=== PATIENT | female | born 1990 | race Caucasian/White ===

== ENCOUNTER 2019-08-24 17:03 | Emergency (ER) | payer MEDICAID ==
[~2019-08-24] VITALS: Ht 170.2 cm; Wt 94.0 kg
[2019-08-24 17:13] VITALS: BP 143/90
[2019-08-24 19:02] LABS: BASOPHILS # (AUTO) 0.1 X10'3 (0-0.2); BASOPHILS % (AUTO) 0.9 % (0-1); EOSINOPHILS # (AUTO) 0.2 X10'3 (0-0.9); EOSINOPHILS % (AUTO) 2.2 % (0-6); HEMATOCRIT 42.9 % (35.0-45.0); HEMOGLOBIN 14.6 g/dl (12.0-16.0); LYMPHOCYTES # (AUTO) 2.8 X10'3 (1.1-4.8); LYMPHOCYTES % (AUTO) 29.5 % (21-51); MEAN CORPUSCULAR HEMOGLOBIN 30.9 PG (27.0-31.0); MEAN CORPUSCULAR HGB CONC 34.1 g/dL (33.0-36.5); MEAN CORPUSCULAR VOLUME 90.7 FL (78-98); MEAN PLATELET VOLUME 8.3 FL (7.4-10.4); MONOCYTES # (AUTO) 0.7 X10'3 (0-0.9); MONOCYTES % (AUTO) 7.7 % (2-12); NEUTROPHILS # (AUTO) 5.6 X10'3 (1.8-7.7); NEUTROPHILS % (AUTO) 59.7 % (42-75); PLATELET COUNT 299 X10'3 (140-440); RED BLOOD COUNT 4.72 X10'6 (4.20-5.60); RED CELL DISTRIBUTION WIDTH 12.7 % (11.5-14.5); WHITE BLOOD COUNT 9.3 X10'3 (4.5-11.0)
[2019-08-24 19:23] LABS: ALANINE AMINOTRANSFERASE 25 U/L (12-78); ALBUMIN 3.6 G/DL (3.4-5.0); ALKALINE PHOSPHATASE 93 IU/L (46-116); ANION GAP 6 (8-16); ASPARTATE AMINO TRANSFERASE 21 U/L (10-37); BILIRUBIN,TOTAL 0.2 MG/DL (0.1-1.0); BLOOD UREA NITROGEN 12 MG/DL (7-18); BUN/CREATININE RATIO 23.5 (6.6-38.0); CALCIUM 9.1 MG/DL (8.5-10.1); CHLORIDE 104 MMOL/L (99-107); CREATININE 0.51 MG/DL (0.40-0.90); GLUCOSE 80 MG/DL (70-104); POTASSIUM 3.6 MMOL/L (3.5-5.1); SODIUM 140 MMOL/L (135-145); TOTAL CARBON DIOXIDE 29.9 MMOL/L (24-32); TOTAL PROTEIN 7.2 G/DL (6.4-8.2); eGFR > 90 ML/MIN
[2019-08-24 19:27] LABS: MAGNESIUM 1.8 MG/DL (1.5-2.4)
== END 2019-08-24 20:08 | disposition home or self-care (01) ==
LOC: ER 17:04
DX: R60.0 Localized edema (principal); E88.09 Other disorders of plasma-protein metabolism, not elsewhere classified; E10.9 Type 1 diabetes mellitus without complications; Z56.0 Unemployment, unspecified; Z88.1 Allergy status to other antibiotic agents; Z88.5 Allergy status to narcotic agent; Z88.8 Allergy status to other drugs, medicaments and biological substances
CPT/HCPCS: 36415; 80053; 82948; 83735; 83880; 85025; 99284

== ENCOUNTER 2019-12-27 00:33 | Emergency (ER) | payer MEDICAID ==
[~2019-12-27] VITALS: Ht 170.2 cm; Wt 100.0 kg
[2019-12-27 00:51] LABS: CLARITY,URINE SLIGHTLY CLOUDY (Clear); COLOR,URINE YELLOW (Yellow); GLUCOSE, URINE 500 mg/dl (Neg); KETONES,URINE NEGATIVE (Neg); LEUKOCYTE ESTERASE ,URINE NEGATIVE (Neg); NITRITES, URINE NEGATIVE (Neg); OCCULT BLOOD,URINE NEGATIVE (Neg); PROTEIN,URINE NEGATIVE (Neg); UA COLLECTION TYPE CLN CATCH MIDSTREAM; UROBILINOGEN,URINE 0.2 E.U/dL (0.2-1.0)
[2019-12-27 00:55] LABS: BACTERIA,URINE 1+ /HPF (Neg); RBC,URINE NONE SEEN /HPF (0-2); SQUAMOUS EPITHELIAL CELL,UR MODERATE /LPF (FEW); WBC,URINE 0-4 /HPF (0-4)
[2019-12-27 00:56] LABS: YEAST MODERATE /HPF (NEGATIVE)
[2019-12-27] MEDS ORDERED: ketorolac trometh. 30mg/ml inj. IV ONE (01:00)
[2019-12-27] MEDS ORDERED: METH-360 PO (01:33)
[2019-12-27 01:35] LABS: MEAN CORPUSCULAR HEMOGLOBIN 31.3 PG (27.0-31.0); PLATELET COUNT 366 X10'3 (140-440); RED CELL DISTRIBUTION WIDTH 13.3 % (11.5-14.5); WHITE BLOOD COUNT 10.6 X10'3 (4.5-11.0)
[2019-12-27 01:36] LABS: ALANINE AMINOTRANSFERASE 16 U/L (12-78); ALBUMIN 3.3 G/DL (3.4-5.0); ALBUMIN/GLOBULIN RATIO 0.8 (1.1-1.5); ALKALINE PHOSPHATASE 95 IU/L (46-116); ANION GAP 8 (8-16); ASPARTATE AMINO TRANSFERASE 12 U/L (10-37); BASOPHILS # (AUTO) 0.2 X10'3 (0-0.2); BASOPHILS % (AUTO) 1.6 % (0-1); BILIRUBIN,TOTAL 0.2 MG/DL (0.1-1.0); BLOOD UREA NITROGEN 10 MG/DL (7-18); BUN/CREATININE RATIO 19.6 (6.6-38.0); CALCIUM 9.1 MG/DL (8.5-10.1); CHLORIDE 103 MMOL/L (99-107); CREATININE 0.51 MG/DL (0.40-0.90); EOSINOPHILS # (AUTO) 0.3 X10'3 (0-0.9); EOSINOPHILS % (AUTO) 2.5 % (0-6); GLUCOSE 200 MG/DL (70-104); HEMATOCRIT 40.4 % (35.0-45.0); LIPASE 52 U/L (73-393); LYMPHOCYTES # (AUTO) 2.5 X10'3 (1.1-4.8); LYMPHOCYTES % (AUTO) 23.4 % (21-51); MEAN CORPUSCULAR HGB CONC 34.6 g/dL (33.0-36.5); MEAN CORPUSCULAR VOLUME 90.3 FL (78-98); MEAN PLATELET VOLUME 8.1 FL (7.4-10.4); MONOCYTES # (AUTO) 0.7 X10'3 (0-0.9); MONOCYTES % (AUTO) 6.5 % (2-12); POTASSIUM 3.9 MMOL/L (3.5-5.1); RED BLOOD COUNT 4.48 X10'6 (4.20-5.60); SODIUM 139 MMOL/L (135-145); TOTAL CARBON DIOXIDE 28.2 MMOL/L (24-32); TOTAL PROTEIN 7.3 G/DL (6.4-8.2); eGFR > 90 ML/MIN
[2019-12-27 02:02] VITALS: BP 136/95
== END 2019-12-27 02:03 | disposition home or self-care (01) ==
LOC: ER 00:34
DX: S29.012A Strain of muscle and tendon of back wall of thorax, initial encounter (principal); M54.89 Other dorsalgia; R10.32 Left lower quadrant pain; E11.9 Type 2 diabetes mellitus without complications; Z56.0 Unemployment, unspecified; Z88.1 Allergy status to other antibiotic agents; Z88.5 Allergy status to narcotic agent; Z88.8 Allergy status to other drugs, medicaments and biological substances; Z79.899 Other long term (current) drug therapy; X58.XXXA Exposure to other specified factors, initial encounter; Y93.89 Activity, other specified; Y92.89 Other specified places as the place of occurrence of the external cause; Y99.8 Other external cause status
CPT/HCPCS: 36415; 74176; 80053; 81001; 82948; 83690; 85025; 96374; 99284; J1885

== ENCOUNTER 2020-11-11 07:39 | Emergency (ER) | payer MEDICAID ==
[~2020-11-11] VITALS: Ht 170.2 cm; Wt 101.9 kg
[~2020-11-11 07:39] MED LIST: METH-360 PO
[2020-11-11 08:10] VITALS: BP 149/89
[2020-11-11 09:50] LABS: BASOPHILS # (AUTO) 0.1 X10'3 (0-0.2); BASOPHILS % (AUTO) 0.9 % (0-1); EOSINOPHILS # (AUTO) 0.1 X10'3 (0-0.9); EOSINOPHILS % (AUTO) 1.1 % (0-6); HEMATOCRIT 41.6 % (35.0-45.0); HEMOGLOBIN 14.1 g/dl (12.0-16.0); LYMPHOCYTES # (AUTO) 2.4 X10'3 (1.1-4.8); LYMPHOCYTES % (AUTO) 25.1 % (21-51); MEAN CORPUSCULAR HEMOGLOBIN 30.3 PG (27.0-31.0); MEAN CORPUSCULAR HGB CONC 33.8 g/dL (33.0-36.5); MEAN CORPUSCULAR VOLUME 89.6 FL (78-98); MEAN PLATELET VOLUME 8.4 FL (7.4-10.4); MONOCYTES # (AUTO) 0.5 X10'3 (0-0.9); MONOCYTES % (AUTO) 5.6 % (2-12); NEUTROPHILS # (AUTO) 6.4 X10'3 (1.8-7.7); NEUTROPHILS % (AUTO) 67.3 % (42-75); PLATELET COUNT 356 X10'3 (140-440); RED BLOOD COUNT 4.64 X10'6 (4.20-5.60); RED CELL DISTRIBUTION WIDTH 12.7 % (11.5-14.5); WHITE BLOOD COUNT 9.5 X10'3 (4.5-11.0)
[2020-11-11 09:58] LABS: ALANINE AMINOTRANSFERASE 18 U/L (12-78); ALBUMIN 3.4 G/DL (3.4-5.0); ALBUMIN/GLOBULIN RATIO 0.8 (1.1-1.5); ALKALINE PHOSPHATASE 90 IU/L (46-116); ANION GAP 10 (8-16); ASPARTATE AMINO TRANSFERASE 12 U/L (10-37); BILIRUBIN,TOTAL 0.4 MG/DL (0.1-1.0); BLOOD UREA NITROGEN 9 MG/DL (7-18); BUN/CREATININE RATIO 19.6 (6.6-38.0); CALCIUM 8.8 MG/DL (8.5-10.1); CHLORIDE 104 MMOL/L (99-107); CREATININE 0.46 MG/DL (0.40-0.90); GLUCOSE 103 MG/DL (70-104); LIPASE < 50 U/L (73-393); SODIUM 141 MMOL/L (135-145); TOTAL CARBON DIOXIDE 27.4 MMOL/L (24-32); TOTAL PROTEIN 7.9 G/DL (6.4-8.2); eGFR > 90 ML/MIN
[2020-11-11 10:54] LABS: CLARITY,URINE CLOUDY (Clear); COLOR,URINE YELLOW (Yellow); GLUCOSE, URINE NEGATIVE (Neg); KETONES,URINE NEGATIVE (Neg); LEUKOCYTE ESTERASE ,URINE NEGATIVE (Neg); NITRITES, URINE NEGATIVE (Neg); OCCULT BLOOD,URINE NEGATIVE (Neg); PROTEIN,URINE NEGATIVE (Neg)
[2020-11-11 10:58] LABS: UA COLLECTION TYPE CLN CATCH MIDSTREAM
[2020-11-11 10:59] LABS: MUCUS STRANDS MANY /LPF (Neg); SQUAMOUS EPITHELIAL CELL,UR MANY /LPF (FEW)
[2020-11-11 11:00] LABS: BACTERIA,URINE 1+ /HPF (Neg); URINE HCG NEGATIVE (NEG); YEAST MANY /HPF (NEGATIVE)
[2020-11-11 11:01] LABS: TRANSITIONAL EPI CELLS,URINE FEW /HPF
[2020-11-11 11:02] LABS: RBC,URINE 0-2 /HPF (0-2); WBC,URINE 0-4 /HPF (0-4)
== END 2020-11-11 11:12 | disposition home or self-care (01) ==
LOC: ER 07:39
DX: R10.84 Generalized abdominal pain (principal); R07.89 Other chest pain; R06.02 Shortness of breath; E11.9 Type 2 diabetes mellitus without complications; Z56.0 Unemployment, unspecified; Z88.1 Allergy status to other antibiotic agents; Z88.5 Allergy status to narcotic agent; Z88.8 Allergy status to other drugs, medicaments and biological substances; Z79.899 Other long term (current) drug therapy
CPT/HCPCS: 36415; 80053; 81001; 81025; 83690; 85025; 93005; 99284

== ENCOUNTER 2022-03-22 08:48 | Emergency (ER) | payer MEDICAID ==
[~2022-03-22] VITALS: Ht 170.2 cm; Wt 109.0 kg
[2022-03-22 08:52] VITALS: BP 156/88
[2022-03-22] MEDS ORDERED: dexamethasone sod phosphate 10mg/ml inj PO STA (09:04)
[2022-03-22] MEDS ORDERED: ipratropium/albuterol 3ml nebule NEB ONE (09:05)
[2022-03-22] MEDS ORDERED: levoFLOXACIN 250mg tablet PO ONE (10:15)
[2022-03-22] MEDS ORDERED: BUDE180A INH (10:19)
[2022-03-22] MEDS ORDERED: ALBU6.7H14 INH (10:19)
[2022-03-22] MEDS ORDERED: LEVO-65 PO (10:19)
[2022-03-22] MEDS ORDERED: DEXA6TAB PO (10:19)
== END 2022-03-22 10:37 | disposition home or self-care (01) ==
LOC: ER 08:48
DX: J18.9 Pneumonia, unspecified organism (principal); J45.909 Unspecified asthma, uncomplicated; Z20.822 Contact with and (suspected) exposure to COVID-19; E11.9 Type 2 diabetes mellitus without complications; Z56.0 Unemployment, unspecified; Z88.1 Allergy status to other antibiotic agents; Z86.718 Personal history of other venous thrombosis and embolism; Z88.5 Allergy status to narcotic agent; Z79.899 Other long term (current) drug therapy
CPT/HCPCS: 71046; 93971; 94640; 99284; J1100; 94760

== ENCOUNTER 2022-04-07 10:33 | Outpatient (CLI) | payer MEDICAID ==
[~2022-04-07 10:33] MED LIST changes: +ALBU6.7H14 INH; +BUDE180A INH; +DEXA6TAB PO
== END 2022-04-07 23:59 | disposition home or self-care (01) ==
LOC: RAD 10:33
PROVIDERS: ATTEND Family Medicine
DX: I25.10 Atherosclerotic heart disease of native coronary artery without angina pectoris (principal); R20.0 Anesthesia of skin; I10 Essential (primary) hypertension; R94.31 Abnormal electrocardiogram [ECG] [EKG]
CPT/HCPCS: 75571

== ENCOUNTER 2023-08-23 05:04 | Inpatient (IN) | payer MEDICAID, SELFPAY ==
[2023-08-23] VITALS (9 sets, daily range): BP systolic 136–156; BP diastolic 77–87; PULSE 94–100; RESP 14–33; TEMP 97.9; O2SAT 94–98
[~2023-08-23] VITALS: Ht 170.2 cm; Wt 113.6 kg
[2023-08-23 05:45] LABS: BASOPHILS # (AUTO) 0.1 X10'3 (0-0.2); BASOPHILS % (AUTO) 0.4 % (0-1); EOSINOPHILS # (AUTO) 0.1 X10'3 (0-0.9); EOSINOPHILS % (AUTO) 0.6 % (0-6); HEMATOCRIT 42.9 % (35.0-45.0); HEMOGLOBIN 14.2 g/dl (12.0-16.0); LYMPHOCYTES # (AUTO) 2.5 X10'3 (1.1-4.8); LYMPHOCYTES % (AUTO) 15.9 % (21-51); MEAN CORPUSCULAR HEMOGLOBIN 29.3 PG (27.0-31.0); MEAN CORPUSCULAR VOLUME 88.7 FL (78-98); MEAN PLATELET VOLUME 7.9 FL (7.4-10.4); MONOCYTES # (AUTO) 0.5 X10'3 (0-0.9); MONOCYTES % (AUTO) 3.4 % (2-12); NEUTROPHILS # (AUTO) 12.3 X10'3 (1.8-7.7); NEUTROPHILS % (AUTO) 79.7 % (42-75); PLATELET COUNT 328 X10'3 (140-440); RED BLOOD COUNT 4.84 X10'6 (4.20-5.60); RED CELL DISTRIBUTION WIDTH 13.7 % (11.5-14.5); WHITE BLOOD COUNT 15.5 X10'3 (4.5-11.0)
[2023-08-23 06:01] LABS: ALANINE AMINOTRANSFERASE 24 U/L (12-78); ALBUMIN 3.3 G/DL (3.4-5.0); ALBUMIN/GLOBULIN RATIO 0.7 (1.1-1.5); ALKALINE PHOSPHATASE 94 IU/L (46-116); ANION GAP 8 (8-16); ASPARTATE AMINO TRANSFERASE 20 U/L (10-37); BILIRUBIN,TOTAL 0.3 MG/DL (0.1-1.0); BLOOD UREA NITROGEN 7 MG/DL (7-18); BUN/CREATININE RATIO 12.7 (10.0-20.0); CALCIUM 8.9 MG/DL (8.5-10.1); CHLORIDE 102 MMOL/L (99-107); CREATININE 0.55 MG/DL (0.40-0.90); GLUCOSE 103 MG/DL (70-104); LIPASE 26 U/L (16-77); POTASSIUM 4.4 MMOL/L (3.5-5.1); SODIUM 136 MMOL/L (135-145); TOTAL CARBON DIOXIDE 26.5 MMOL/L (24-32); eCRCL 140 ML/MIN; eGFR > 90 ML/MIN
[2023-08-23] MEDS ORDERED: morphine 2 MG/ML inj. syringe IV PRN (06:30)
[2023-08-23] MEDS: ringers solution, lacted 1,000 ML IV ONE (06:30)
[2023-08-23] MEDS: acetaminophen 1,000mg/100ml IV 100 ML IV SCH (06:49)
[2023-08-23] MEDS: piperacillin/tazo 3.375gm/50ml 50 ML IV ONE (07:38)
[2023-08-23 08:02] LABS: BILIRUBIN,URINE NEGATIVE (Neg); CLARITY,URINE CLOUDY (Clear); COLOR,URINE YELLOW (Yellow); GLUCOSE, URINE NEGATIVE (Neg); KETONES,URINE NEGATIVE (Neg); LEUKOCYTE ESTERASE ,URINE NEGATIVE (Neg); NITRITES, URINE POSITIVE (Neg); OCCULT BLOOD,URINE TRACE-INTACT (Neg); PH,URINE 6.5 (4.8-8.0); PROTEIN,URINE NEGATIVE (Neg); UROBILINOGEN,URINE 0.2 E.U/dL (0.2-1.0)
[2023-08-23] MEDS ORDERED: iohexol 300mg/ml 100ml inj. ONE (08:05)
[2023-08-23 08:08] LABS: BACTERIA,URINE 4+ /HPF (Neg); MUCUS STRANDS FEW /LPF (Neg); SQUAMOUS EPITHELIAL CELL,UR MANY /LPF (FEW)
[2023-08-23 08:11] LABS: URINE HCG NEGATIVE (NEG)
[2023-08-23 08:12] LABS: UA COLLECTION TYPE VOIDED
[2023-08-23] MEDS ORDERED: NORepinephrine 8mg/ 250ml NS 250 ML IV SCH (08:45)
[2023-08-23] MEDS ORDERED: potassium Cl 20 mEq SR tablet PO PRN ×2 (09:40)
[2023-08-23] MEDS ORDERED: magnesium Cl slow-release 64mg tablet PO PRN (09:40)
[2023-08-23] MEDS ORDERED: magnesium 4gm in 100ml NS 100 ML IV PRN (09:40)
[2023-08-23] MEDS ORDERED: potassium Cl 40MEQ/1/2NS 520ml 520 ML IV PRN (09:40)
[2023-08-23] MEDS ORDERED: ondansetron/PF 4mg/2ml inj IV PRN (09:40)
[2023-08-23] MEDS ORDERED: acetaminophen 325mg tablet PO PRN (09:40)
[2023-08-23] MEDS ORDERED: magnesium 2GM in 50ml NS 50 ML IV PRN (09:40)
[2023-08-23] MEDS ORDERED: DEXTROSE 15 GM of carb/4 tabs (each vial/BOTTLE has 4 tablets) PO PRN ×2 (09:50)
[2023-08-23] MEDS ORDERED: glucagon, human recombinant 1mg kit SUBCUT PRN (09:50)
[2023-08-23] MEDS ORDERED: dextrose 50%-water 50ml dispensing syringe IV PRN ×2 (09:50)
[2023-08-23] MEDS: INSULIN LISPRO 100 UNIT/ML INSULN.PEN MULTI-DOSE SQ SCH ×4 (11:58→17:10)
[2023-08-23] MEDS: normal saline 1000ml 1,000 ML IV SCH (12:00)
[2023-08-23] MEDS: traMADol 50MG tablet PO ONE (12:19)
[2023-08-23] MEDS ORDERED: ASPI-920 PO (13:26)
[2023-08-23] MEDS ORDERED: LURA80TA2 PO (13:26)
[2023-08-23] MEDS ORDERED: BLOO-1948 SUBCUT (13:26)
[2023-08-23] MEDS ORDERED: INSU100C10 SUBCUT (13:26)
[2023-08-23] MEDS ORDERED: ROSU20TA2 PO (13:26)
[2023-08-23] MEDS ORDERED: DULO-31 PO (13:28)
[2023-08-23] MEDS ORDERED: SEMA0.258 SUBCUT (13:28)
[2023-08-23] MEDS ORDERED: acetaminophen 325mg tablet PO SCH (14:00)
[2023-08-23 14:32] LABS: HEMOGLOBIN A1C 7.8 % (4.5-6.2)
[2023-08-23] MEDS: piperacillin/tazo 3.375gm/50ml 50 ML IV SCH (17:03)
[2023-08-23] MEDS ORDERED: BUPIVAcaine/PF 2.5mg/ml (0.25%) 10ml vial ONE (18:39)
[2023-08-23] MEDS: heparin, porcine 5000 units/ml vial SQ SCH (20:00)
[2023-08-23] MEDS ORDERED: sevoflurane 250ml liquid IH ONE (21:04)
[2023-08-23] MEDS ORDERED: labetalol 20mg/4ml (5mg/ml) syringe IV PRN ×2 (21:10→23:10)
[2023-08-23] MEDS ORDERED: meperidine/PF 25mg/ml syringe IV PRN ×2 (21:10)
[2023-08-23] MEDS ORDERED: ringers solution, lacted 1,000 ML IV SCH ×2 (21:10→23:10)
[2023-08-23] MEDS ORDERED: HYDROmorphone/PF 0.2 MG/ML SYRINGE IV PRN ×4 (21:10→23:10)
[2023-08-23] MEDS ORDERED: fentaNYL/PF 50MCG/1 ML 2ML syringe ONE (21:12)
[2023-08-23] MEDS ORDERED: midazolam 1 mg/ML 2ml injection ONE (21:12)
[2023-08-23] MEDS ORDERED: propofol inj 20 ML IV ONE (21:12)
[2023-08-23] MEDS ORDERED: rocuronium 10mg/ml inj IV ONE (21:13)
[2023-08-23] MEDS: BUPIVAcaine/PF 2.5 mg/ml (0.25%) 30ml vial IJ ONE (21:50)
[2023-08-23] MEDS ORDERED: glycopyrrolate 0.2mg/ml inj ONE (22:24)
[2023-08-23] MEDS ORDERED: neostigmine methylsulfate 1 MG/ML 10ml vial ONE (22:24)
[2023-08-23] MEDS ORDERED: naloxone 0.4 mg/ml inj IV PRN (22:40)
[2023-08-23] MEDS: meperidine/PF 25mg/ml syringe IV PRN (23:11)
[2023-08-23] MEDS: acetaminophen 1,000mg/100ml IV 100 ML IV ONE (23:13)
[2023-08-23] MEDS: ondansetron/PF 4mg/2ml inj IV PRN (23:13)
[2023-08-23 23:40] LABS: BILIRUBIN,URINE NEGATIVE (Neg); CLARITY,URINE CLOUDY (Clear); COLOR,URINE YELLOW (Yellow); GLUCOSE, URINE NEGATIVE (Neg); KETONES,URINE 15 mg/dl (Neg); LEUKOCYTE ESTERASE ,URINE TRACE (Neg); NITRITES, URINE POSITIVE (Neg); OCCULT BLOOD,URINE MODERATE (Neg); PROTEIN,URINE TRACE mg/dl (Neg); UROBILINOGEN,URINE 0.2 E.U/dL (0.2-1.0)
[2023-08-23 23:48] LABS: UA COLLECTION TYPE NON-SPECIFIED
[2023-08-23 23:51] LABS: BACTERIA,URINE 3+ /HPF (Neg); SQUAMOUS EPITHELIAL CELL,UR FEW /LPF (FEW); WBC,URINE TNTC /HPF (0-4)
[2023-08-23 23:52] LABS: RENAL CELLS, URINE FEW /HPF; TRANSITIONAL EPI CELLS,URINE FEW /HPF; WBC CLUMPS,URINE MODERATE /HPF (NEGATIVE)
[2023-08-24] VITALS (12 sets, daily range): BP systolic 113–155; BP diastolic 3–84; PULSE 94–109; RESP 18–22; TEMP 97.4–98.6; O2SAT 94–100
[2023-08-24] MEDS: traMADol 50MG tablet PO PRN (05:39)
[2023-08-24 06:15] LABS: BASOPHILS # (AUTO) 0.1 X10'3 (0-0.2); BASOPHILS % (AUTO) 0.4 % (0-1); EOSINOPHILS % (AUTO) 0.2 % (0-6); HEMATOCRIT 34.9 % (35.0-45.0); HEMOGLOBIN 11.7 g/dl (12.0-16.0); LYMPHOCYTES # (AUTO) 2.3 X10'3 (1.1-4.8); LYMPHOCYTES % (AUTO) 18.9 % (21-51); MEAN CORPUSCULAR HEMOGLOBIN 29.6 PG (27.0-31.0); MEAN CORPUSCULAR HGB CONC 33.4 g/dL (33.0-36.5); MEAN CORPUSCULAR VOLUME 88.8 FL (78-98); MEAN PLATELET VOLUME 8.6 FL (7.4-10.4); MONOCYTES # (AUTO) 0.4 X10'3 (0-0.9); MONOCYTES % (AUTO) 3.5 % (2-12); NEUTROPHILS # (AUTO) 9.3 X10'3 (1.8-7.7); PLATELET COUNT 310 X10'3 (140-440); RED BLOOD COUNT 3.93 X10'6 (4.20-5.60); RED CELL DISTRIBUTION WIDTH 13.8 % (11.5-14.5); WHITE BLOOD COUNT 12.2 X10'3 (4.5-11.0)
[2023-08-24 07:08] LABS: ALANINE AMINOTRANSFERASE 18 U/L (12-78); ALBUMIN 2.6 G/DL (3.4-5.0); ALBUMIN/GLOBULIN RATIO 0.7 (1.1-1.5); ALKALINE PHOSPHATASE 67 IU/L (46-116); ANION GAP 8 (8-16); ASPARTATE AMINO TRANSFERASE 14 U/L (10-37); BILIRUBIN,TOTAL 0.6 MG/DL (0.1-1.0); BLOOD UREA NITROGEN 4 MG/DL (7-18); BUN/CREATININE RATIO 7.5 (10.0-20.0); CALCIUM 7.7 MG/DL (8.5-10.1); CHLORIDE 103 MMOL/L (99-107); CREATININE 0.53 MG/DL (0.40-0.90); GLUCOSE 166 MG/DL (70-104); POTASSIUM 3.9 MMOL/L (3.5-5.1); SODIUM 137 MMOL/L (135-145); TOTAL CARBON DIOXIDE 26.5 MMOL/L (24-32); TOTAL PROTEIN 6.3 G/DL (6.4-8.2); eCRCL 145 ML/MIN; eGFR > 90 ML/MIN
[2023-08-24] MEDS: INSULIN LISPRO 100 UNIT/ML INSULN.PEN MULTI-DOSE SQ SCH (07:30)
[2023-08-24] MEDS: HYDROmorphone inj. 0.5 MG/0.5 ML DISP.SYRIN IV PRN (10:21)
[2023-08-24] MEDS: acetaminophen 325mg tablet PO SCH (11:02)
[2023-08-24] MEDS: lurasidone 20mg tablet PO SCH (21:14)
[2023-08-24] MEDS: HYDROcodone/acetaminophen 5mg/325mg tablet PO PRN (21:24)
[2023-08-24] MEDS: insulin glargine (Lantus) pen - multi-dose SQ SCH (22:21)
[2023-08-25 06:09] LABS: BASOPHILS # (AUTO) 0.1 X10'3 (0-0.2); BASOPHILS % (AUTO) 0.7 % (0-1); EOSINOPHILS # (AUTO) 0.2 X10'3 (0-0.9); EOSINOPHILS % (AUTO) 2.1 % (0-6); HEMOGLOBIN 11.7 g/dl (12.0-16.0); LYMPHOCYTES # (AUTO) 2.5 X10'3 (1.1-4.8); LYMPHOCYTES % (AUTO) 29.2 % (21-51); MEAN CORPUSCULAR HEMOGLOBIN 29.8 PG (27.0-31.0); MEAN CORPUSCULAR HGB CONC 33.5 g/dL (33.0-36.5); MEAN CORPUSCULAR VOLUME 88.9 FL (78-98); MEAN PLATELET VOLUME 8.6 FL (7.4-10.4); MONOCYTES # (AUTO) 0.5 X10'3 (0-0.9); MONOCYTES % (AUTO) 5.9 % (2-12); NEUTROPHILS # (AUTO) 5.3 X10'3 (1.8-7.7); NEUTROPHILS % (AUTO) 62.1 % (42-75); PLATELET COUNT 306 X10'3 (140-440); RED BLOOD COUNT 3.94 X10'6 (4.20-5.60); RED CELL DISTRIBUTION WIDTH 13.8 % (11.5-14.5); WHITE BLOOD COUNT 8.6 X10'3 (4.5-11.0)
[2023-08-25 06:16] LABS: ALANINE AMINOTRANSFERASE 15 U/L (12-78); ALBUMIN 2.5 G/DL (3.4-5.0); ALBUMIN/GLOBULIN RATIO 0.7 (1.1-1.5); ALKALINE PHOSPHATASE 63 IU/L (46-116); ANION GAP 5 (8-16); ASPARTATE AMINO TRANSFERASE 10 U/L (10-37); BILIRUBIN,TOTAL 0.3 MG/DL (0.1-1.0); BLOOD UREA NITROGEN 3 MG/DL (7-18); BUN/CREATININE RATIO 5.4 (10.0-20.0); CALCIUM 7.8 MG/DL (8.5-10.1); CHLORIDE 103 MMOL/L (99-107); CREATININE 0.56 MG/DL (0.40-0.90); GLUCOSE 257 MG/DL (70-104); POTASSIUM 3.6 MMOL/L (3.5-5.1); SODIUM 135 MMOL/L (135-145); TOTAL CARBON DIOXIDE 26.7 MMOL/L (24-32); TOTAL PROTEIN 6.2 G/DL (6.4-8.2); eCRCL 138 ML/MIN; eGFR > 90 ML/MIN
[2023-08-25 06:18] VITALS: BP 139/75; PULSE 97; RESP 16; TEMP 97.8; O2SAT 93
[2023-08-25] MEDS: duloxetine 30mg CAPSULE.DR PO SCH (08:02)
[2023-08-25] MEDS: aspirin 81mg tab.chew PO SCH (08:02)
[2023-08-25] MEDS: atorvastatin 20mg tablet PO SCH (08:02)
[2023-08-25] MEDS ORDERED: CIPR-259 PO (09:50)
[2023-08-25] MEDS ORDERED: TRAM50TA2 PO (09:55)
[2023-08-25] MEDS ORDERED: SENN-36 PO (09:55)
== END 2023-08-25 11:01 | disposition home or self-care (01) | DRG 234 ==
LOC: ER 05:05 → ED HOLD 09:43 → SUR 3N 23:40
PROVIDERS: ADMIT Internal Medicine; ATTEND Internal Medicine
PROC: 8E0W4CZ Robotic Assisted Procedure of Trunk Region, Percutaneous Endoscopic Approach (ICD-10-PCS; 2023-08-23)
PROC: BW211ZZ Computerized Tomography (CT Scan) of Abdomen and Pelvis using Low Osmolar Contrast (ICD-10-PCS; 2023-08-23)
PROC: 0DTJ4ZZ Resection of Appendix, Percutaneous Endoscopic Approach (ICD-10-PCS; principal; 2023-08-23 21:04)
DX: K35.80 Unspecified acute appendicitis (principal); E10.51 Type 1 diabetes mellitus with diabetic peripheral angiopathy without gangrene; F31.9 Bipolar disorder, unspecified; Z88.2 Allergy status to sulfonamides; Z88.5 Allergy status to narcotic agent; Z88.8 Allergy status to other drugs, medicaments and biological substances; Z79.899 Other long term (current) drug therapy; Z88.1 Allergy status to other antibiotic agents; Z79.82 Long term (current) use of aspirin; Z79.4 Long term (current) use of insulin; Z88.3 Allergy status to other anti-infective agents
CPT/HCPCS: 36415; 74177; 76700; 80053; 81001; 81025; 82948; 83036; 83605; 83690; 84145; 85025; 87040; 87081; 87088; 99291; A4215; A4314; A4618; A6449; G0378; J0131; J1100; J1170; J1644; J1815; J2175; J2250; J2405; J2543; J2704; J2710; J3010; J3490; J7030; J7120; Q9967

== ENCOUNTER 2023-10-13 12:58 | Outpatient (CLI) | payer MEDICAID ==
[~2023-10-13 12:58] MED LIST changes: -ALBU6.7H14 INH; +ASPI-920 PO; +BLOO-1948 SUBCUT; -BUDE180A INH; -DEXA6TAB PO; +DULO-31 PO; +INSU100C10 SUBCUT; +LURA80TA2 PO; -METH-360 PO; +ROSU20TA2 PO; +SEMA0.258 SUBCUT; +SENN-36 PO
[2023-10-13 13:48] LABS: ALBUMIN 3.4 G/DL (3.4-5.0); ANION GAP 8 (8-16); BLOOD UREA NITROGEN 7 MG/DL (7-18); BUN/CREATININE RATIO 12.3 (10.0-20.0); CALCIUM 8.9 MG/DL (8.5-10.1); CHLORIDE 103 MMOL/L (99-107); CREATININE 0.57 MG/DL (0.40-0.90); GLUCOSE 98 MG/DL (70-104); POTASSIUM 3.9 MMOL/L (3.5-5.1); SODIUM 140 MMOL/L (135-145); TOTAL CARBON DIOXIDE 29.1 MMOL/L (24-32); eGFR > 90 ML/MIN
[2023-10-13] MEDS ORDERED: GADOTERATE MEGLUMINE 7.5 MMOL/15 ML VIAL IV ONE (16:56)
== END 2023-10-13 23:59 | disposition home or self-care (01) ==
LOC: MRI 12:58
PROVIDERS: ATTEND Podiatrist Foot & Ankle Surgery
DX: M25.472 Effusion, left ankle (principal); M79.672 Pain in left foot; T81.40XA Infection following a procedure, unspecified, initial encounter
CPT/HCPCS: 36415; 73720; 80048; A9575